=== PATIENT | male | born 1960 | race Hispanic/Latino ===

== ENCOUNTER 2023-03-09 08:53 | Day surgery (SDC) | payer BC ==
[2023-03-09] MEDS ORDERED: NA CHLORIDE 0.9% 1,000 ML ONE (09:34)
[2023-03-09] MEDS ORDERED: propofoL 200 MG/20 ML VIAL IV ONE (10:45)
[2023-03-09] MEDS ORDERED: LIDOCAINE 1% MPF 5 ML VIAL ONE (10:45)
--- NOTE | 2023-03-09 12:28 | EKG ---
Test Date: 2023-03-08 Test Time: 15:47:04 Oil Plant Operator: PATRICK MEASUREMENT RESULTS: Intervals: Rate: 57 LA: 170 QRSD: 86 QT: 428 QTc: 416 Johnston: P: 41 LA: 170 QRS: -25 T: 19 INTERPRETIVE STATEMENTS: Sinus bradycardia with sinus arrhythmia Otherwise normal ECG No previous ECG available for comparison Electronically Signed On 03-09-23 12:27:02 CDT by Jesus Leone
[2023-03-09 13:59] VITALS: TEMP 96.9
[2023-03-09 14:01] VITALS: BP 130/82; O2SAT 97
== END 2023-03-09 12:10 | disposition home or self-care (01) ==
LOC: OR 08:53
PROVIDERS: ATTEND Surgery
PROC: 0DBN8ZX Excision of Sigmoid Colon, Via Natural or Artificial Opening Endoscopic, Diagnostic (ICD-10-PCS; principal; 2023-03-09 10:30)
DX: Z12.11 Encounter for screening for malignant neoplasm of colon (principal); I10 Essential (primary) hypertension; E78.00 Pure hypercholesterolemia, unspecified; E11.9 Type 2 diabetes mellitus without complications; E66.9 Obesity, unspecified; Z68.41 Body mass index [BMI] 40.0-44.9, adult
CPT/HCPCS: 93005; 82947; 88305; 45380; J2704; J2001; J7030

== ENCOUNTER → 2023-09-15 | Day surgery (SDC) | payer BC, MEDICARE ==
[2023-09-11 13:26] LABS: Absolute Eosinophils 0.2 K/uL (0-0.5); Absolute Lymphocytes (CBC) 1.7 K/uL (0.7-4.9); Absolute Monocytes 0.7 K/uL (0.1-1.3); Absolute Neutrophil 5.3 K/uL (1.8-8.0); Basophils % 0.3 % (0-1.3); Eosinophils % 2.9 % (0-4.4); Hematocrit 37.9 % (39.6-49.0); Hemoglobin 12.4 g/dL (13.6-17.9); Lymphocytes % 21.3 % (15.3-44.8); MCH 31.3 pg (27.0-35.0); MCHC 32.8 g/dL (32.0-36.0); MCV 95.5 fL (80-100); MPV 9.3 fL (7.6-11.3); Monocytes % 8.5 % (3.3-12.3); Platelets 218 thou/uL (152-406); RBC Red Blood Cell Count 3.96 M/uL (4.33-5.43); Red Cell Distribution Width 13.9 % (12.1-15.2)
[~2023-09-15] MED LIST: FENTANYL CITR 100 MCG/2 ML ONE; LIDOCAINE 1% MPF 5 ML VIAL ONE; MIDAZOLAM HCL 2 MG/2 ML INJ ONE; ONDANSETRON 4 MG/2 ML VIAL ONE; ROCURONIUM 50 MG/5 ML VIAL IV ONE; SUGAMMADEX SODIUM 200 MG/2 ML VIAL IV ONE; dexAMETHasone 4 MG/ML VIAL ONE; propofoL 200 MG/20 ML VIAL IV ONE
[2023-09-15] MEDS: NA CHLORIDE 0.9% 1,000 ML ONE (07:33)
[2023-09-15] MEDS: CEFAZOLIN SODIUM 2 GM/VIAL ONE (08:11)
[2023-09-15] MEDS: BUPIVACAINE 0.25% PF 30 ML VIAL ONE (08:30)
--- NOTE | 2023-09-15 09:40 | P.OP ---
Preoperative diagnosis: LEFT inguinal Hernia Postoperative diagnosis: LEFT inguinal Hernia Primary procedure: Open LEFT inguinal hernia repair with mesh Anesthesia: GETA + Local + Regional Estimated blood loss: <5cc Specimen: Hernia Contents - adipose Findings: Indirect hernia, ext oblique thin Complications: None Implants: Bard Perfix Plug and Patch - Medium Transferred to: Recovery Room () Condition: Good
[2023-09-15] MEDS: FENTANYL CITR 100 MCG/2 ML ONE (09:59)
[2023-09-15 10:34] VITALS: O2SAT 96
[2023-09-15 11:43] VITALS: BP 134/87; TEMP 97
--- NOTE | 2023-09-15 13:56 | OP ---
Date of Procedure: 09/15/2023 Surgeon: Samy Razo MD, Preoperative Diagnosis: Left inguinal hernia. Postoperative Diagnosis: Left inguinal hernia. Procedure Performed: Open left inguinal hernia repair with mesh. Anesthesia: General endotracheal plus local with 0.25% Marcaine without epinephrine and regional ane sthesia. Estimated Blood Loss: Less than 5 cc. Specimen: Hernia contents which is adipose tissue. Findings: An indirect inguinal hernia and the external oblique aponeurosis was thin and essentially obliterated. Complications: None. Implants: Bard PerFix plug and patch hernia repair system, medium plug utilized. Disposition: Patient transferred to recovery room in good condition. Procedure In Detail: After informed consent was obtained, patient brought into the operating room, p repped and draped in the usual sterile fashion after adequate anesthesia was achieved. I made a curv ilinear incision down in the left inguinal region down to subcutaneous tissues. I dissected down thr ough Camper's fat and Domingo's fascia to expose the external oblique aponeurosis which was noted to b e quite thin and alveolar. I opened this sharply using a 15 blade and then ultimately opened it to t he deep inguinal ring using Metzenbaum scissors both medially and proximally, protecting the ilioingu inal nerve throughout. At this point, I dissected down and encircled the spermatic cord structures. Significant adipose tissue was present throughout the entire multiple peters and planes and I ultima tely dissected free the spermatic cord structures from the hernia sac and returned it to the preperit roy space. There was some adipose tissue which was attached to this. This was ligated at this poi nt, which were hernia contents, sent off for pathologic examination. At this point, I deployed a med ium Bard PerFix plug after appropriately hydrating it in the inguinal ring. At this point, I deploye d it and secured it with a single stitch, at this point, with good apposition of the mesh and deploym ent of the mesh, at this point. I then sized the patch appropriately, secured it to the pubic tuberc le and medial side to the medial and lateral shelving edges of both the inguinal ligament and the int ernal oblique aponeurosis using interrupted 2-0 PDS sutures with good apposition of the mesh and the deep inguinal ring reconstituted, at this point. At this point, I then closed the external oblique a poneurosis using a running 3-0 Vicryl suture. The area was copiously irrigated prior to this as well as after this in the surgical field. At this point, the Camper's fat and Domingo's fascia were close d using a same set 3-0 Vicryl suture en bloc without incident or complication. The deep dermal plane was once again closed with 3-0 Vicryl suture in interrupted fashion with good approximation of tissu es. The skin was then closed with a 4-0 Monocryl in a running fashion. Dermabond was placed over to p. The patient tolerated the procedure without incident or complication and transferred to PACU in g ood condition. All counts were correct at the end of the case. RAUL/JUSTICE Voice ID: [id number] Report ID: [id number]
== END | disposition home or self-care (01) ==
LOC: OR 07:01
PROVIDERS: ATTEND Surgery
PROC: 0YU60JZ Supplement Left Inguinal Region with Synthetic Substitute, Open Approach (ICD-10-PCS; principal; 2023-09-15 08:00)
DX: K40.90 Unilateral inguinal hernia, without obstruction or gangrene, not specified as recurrent (principal)
CPT/HCPCS: 93005; 85025; 80048; 36415; 82947 ×2; 88302; 49505; J2704; J1100; J2001; J2250; J3010 ×2; J2405; J7030